=== PATIENT | female | born 1960 | race Caucasian/White ===

== ENCOUNTER 2019-11-16 13:50 | Outpatient (CLI) | payer OTHER ==
--- NOTE | 2019-11-16 14:58 | ULT ---
TRANASBDOMINAL AND TRANSVAGINAL PELVIC ULTRASOUND WITH RAZO SCALE, COLOR FLOW AND SPECTRAL DOPPLER IM AGIN11/16/19 HISTORY: Postmenopausal bleeding. FINDINGS: The uterus measures 4.7 x 3.9 x 2.8 cm without focal mass or endometrial fluid. The endometrium measu res 1 cm in thickness. The right ovary measures 2.2 x 1.4 x 1.1 cm and the left ovary measures 1.9 x 1.1 x 1.1 cm. Flow is d emonstrated to both ovaries. No adnexal mass is seen. There is a small amount of free fluid in the pe lvis. IMPRESSION: 1. Thickened endometrium. 2. Small amount of free fluid in the cul-de-sac. POS: [facility]
== END 2019-11-16 13:51 | disposition home or self-care (01) ==
LOC: SCSULT 13:50
PROVIDERS: ATTEND Obstetrics & Gynecology Obstetrics
DX: N95.0 Postmenopausal bleeding (principal); R93.89 Abnormal findings on diagnostic imaging of other specified body structures
CPT/HCPCS: 76856